=== PATIENT | male | born 1995 | race Hispanic/Latino ===

== ENCOUNTER 2025-03-10 16:30 | Emergency (ER) | payer SELFPAY ==
[~2025-03-10] VITALS: Ht 175.3 cm; Wt 108.9 kg
[2025-03-10 16:32] VITALS: BP 149/93; PULSE 98; RESP 16; TEMP 100.7
--- NOTE | 2025-03-10 16:46 | ERN ---
ED Note History of Present Illness Stated Complaint: LEFT EAR PAIN Chief Complaint: Earache Time Seen by MD: 16:32 Dictation: PATIENT IS A 29-YEAR-OLD MALE COMING IN TODAY WITH COMPLAINTS OF LEFT EAR PAIN HE HAS HAD FOR 3-4 DAYS. STATES HE SAW HIS PRIMARY CARE, DR. HALEY YESTERDAY AT [facility] AND WAS PRESCRIBED OFLOXACIN DROPS WELL BACTRIM DS TABLETS. HE HAS ONLY HAD ONE DOSE OF EACH AND THEN CAME TO THE EMERGENCY ROOM BECAUSE HE THOUGHT THAT THEY WERE NOT WORKING. NO FEVER NO CHILLS STATES HE DOES HAVE MUFFLED HEARING TO THE LEFT EAR. NO MASTOID TENDERNESS I EXPLAINED TO HIM HE NEEDED TO BE USING COTTON BALLS WHEN HE PLACES EAR DROPS TO RETAINED IN CANAL. IN ADDITION HAS BEEN ENTIRELY TOO SHORT OF TIME TO ADEQUATELY TREAT THE INFECTION. Allergies: Coded Allergies: azithromycin (Unverified Allergy, Unknown, 03/10/25) diphenhydramine (Unverified Allergy, Unknown, 03/10/25) Past Medical History Past Medical History: Other Additional Past Medical Hx: CHRONIC LT EAR INFECTIONS, NOSE BLEEDS Surgical History: Other Surgical History Other: PILONIDAL CYST RN Note Reviewed/Agreed w/PFSH: Yes Review of System Dictation CONSTITUTIONAL: NEGATIVE EXCEPT FOR HPI HEAD/FACE: NEGATIVE EXCEPT FOR HPI EENT: NEGATIVE EXCEPT FOR HPI LEFT EAR PAIN WITH MUFFLED HEARING RESPIRATORY: NEGATIVE EXCEPT FOR HPI GASTROINTESTINAL/ABDOMINAL: NEGATIVE EXCEPT FOR HPI GENITOURINARY: NEGATIVE EXCEPT FOR HPI MUSCULOSKELETAL: NEGATIVE EXCEPT FOR HPI INTEGUMENTARY: NEGATIVE EXCEPT FOR HPI NEUROLOGICAL/PSYCH: NEGATIVE EXCEPT FOR HPI HEMATOLOGIC/LYMPHATIC: NEGATIVE EXCEPT FOR HPI ALL SYSTEMS NEGATIVE, EXCEPT NOTED ABOVE. 13 POINT REVIEW OF SYSTEMS ASSESSED AND ALL NEGATIVE EXCEPT FOR ABOVE. Initial Vital Sign VS Vital Signs Date Time Temp Pulse Resp B/P (MAP) Pulse Ox O2 Delivery O2 Flow Rate FiO2 03/10/25 16:32 100.8 98 16 149/93 96 Room Air 0 Physical Exam Dictation VITAL SIGNS REVIEWED GENERAL APPEARANCE: ALERT, ORIENTED X 3, MODERATE ACUTE DISTRESS, WELL DEVELOPED, NOURISHED. OBESE HEAD AND FACE: NON-TRAUMATIC. EYES: PERRL, PINK CONJUNCTIVAS, EYELID NO TRAUMA, ANTERIOR CHAMBER WITH ARCUS SENILIS. EARS: PINNAS INTACT AND NO SIGNS OF TRAUMA LEFT OTIC CANAL WITH ERYTHEMA TENDERNESS AND SWELLING. UNABLE TO VISUALIZE TM ON THE LEFT. NEGATIVE MASTOID TENDERNESS BILATERALLY NOSE: NO DISCHARGE, NO BLEEDING. OROPHARYNX: MOUTH NORMAL, TONGUE PINK, PHARYNX CLEAR,NO ERYTHEMA, TONSILS NO EXUDATES, NO ABSCESSES NOTED, MUCOUS MEMBRANE MOIST NECK: SUPPLE, NON-TENDER, NO THYROMEGALY, NO MASSES, NO JVD, NO BRUITS BREAST:DEFERRED CHEST:NO TENDERNESS, NO CREPITUS, NO PARADOXICAL MOVEMENT, NO RETRACTIONS LUNGS:CLEAR, WELL-VENTILATED, SYMMETRIC, NO RALES, NO WHEEZING, NO RHONCHI, NO STRIDOR, GOOD BREATH SOUNDS BILATERALLY HEART: REGULAR RATE, REGULAR RHYTHM, NO MURMUR, NO GALLOPS VASCULAR: NO PERIPHERAL EDEMA, ABDOMEN: SOFT, POSITIVE BOWEL SOUNDS, NONDISTENDED, NO GUARDING, NONTENDER, NO REBOUND, NO MASSES NO HEPATOMEGALY, NO SPLENOMEGALY, NO PEDROZA'S SIGN, NO HERNIAS. RECTAL: DEFERRED GENITAL: DEFERRED NEUROLOGICAL: NORMAL SPEECH, MOTOR FUNCTION INTACT, SENSORY FUNCTION INTACT MUSCULOSKELETAL: NECK NONTENDER, FULL RANGE OF MOTION, BACK NONTENDER, FULL RANGE OF MOTION, EXTREMITIES: NONTENDER, FULL RANGE OF MOTION SKIN: COLOR PINK, DRY, NO TURGOR, NO RASH, NO LACERATIONS, NO ABRASIONS, NO CONTUSIONS. LYMPHATIC: DEFERRED Results (Laboratory/Radiology) Labs Reviewed?: Yes ED Course ED Course Orders Procedure Category Date Status Time Ceftriaxone 1g Vial PHA 03/10/25 Complete (Rocephine 1g Inj) 17:00 Hydrocodone/Apap PHA 03/10/25 Complete 5/325 ([place] 5/325mg) 17:00 Current Medications Medications (Trade) Dose Ordered Sig/Hi Route PRN Reason Start Time Stop Time Status Last Admin Dose Admin Acetaminophen/ Hydrocodone Bitart (NORco 5/325MG) 1 tab ONCE ONCE PO 03/10/25 17:00 03/10/25 17:01 DC 03/10/25 16:57 Ceftriaxone Sodium (ROCEphine 1G INJ) 1 gm ONCE ONCE IM 03/10/25 17:00 03/10/25 17:01 DC 03/10/25 16:57 Vital Signs Date Time Temp Pulse Resp B/P (MAP) Pulse Ox O2 Delivery O2 Flow Rate FiO2 03/10/25 16:32 100.8 98 16 149/93 96 Room Air 0 1645/WE WILL TREAT PATIENT EMPIRICALLY FOR ACUTE OTITIS EXTERNA. HE WILL BE GIVEN ROCEPHIN AND ADDITIONAL PAIN MANAGEMENT TOLD TO CONTINUE THE MEDICATIONS FROM HIS DOCTOR PRESCRIBED YESTERDAY AND USE COTTON BALLS WHEN HE PLACES EAR DROPS. ALSO HAS MOTRIN 800 THAT WAS PRESCRIBED YESTERDAY. Medical Decision Making MDM MEDICAL DECISION-MAKING BASED ON EMPIRIC TREATMENT FOR ACUTE OTITIS EXTERNA P.R.N. ANALGESIA WAS GIVEN FOR PAIN. PATIENT IS STRONGLY ADVISED TO CONTINUE OFLOXACIN DROPS, BACTRIM DS TABLETS, IBUPROFEN 800. HE WAS TOLD TO USE THE COTTON BALLS WITH THE ADMINISTRATION OF THE OFLOXACIN DROPS. DX & DISP Disposition: Discharge Departure Impression: Primary Impression: Acute diffuse otitis externa of left ear Condition: Stable Additional Instructions: FOLLOW-UP WITH PRIMARY CARE PROVIDER IN 1 TO 2 DAYS. TAKE MEDICATIONS DIRECTED HERE IN THE EMERGENCY ROOM. OKAY TO CONTINUE HOME MEDICATIONS UNLESS OTHERWISE DISCUSSED DURING YOUR VISIT IN THE EMERGENCY ROOM TODAY. RETURN TO YOUR NEAREST EMERGENCY ROOM IF SYMPTOMS WORSEN OR IF THERE IS NO IMPROVEMENT. CALL 911 IF YOU NEED IMMEDIATE ASSISTANCE. TAKE TYLENOL OR MOTRIN [id number] NEEDED AND IF NO CONTRAINDICATIONS ARE PRESENT. INCREASE ORAL HYDRATION. A WOUND CULTURE OR URINE CULTURE WAS ORDERED HERE IN THE EMERGENCY ROOM DEPARTMENT PLEASE FOLLOW-UP WITH PRIMARY CARE PROVIDER AND ADVISE THEM TO GET REPEAT PORTS FROM OUR FACILITY. IF YOU HAD ANY JANE WRAP/SPLINTS THAT WERE APPLIED HERE, PLEASE DO NOT REMOVE THEM UNTIL YOU SEE YOUR PRIMARY CARE OR SPECIALTY. CONTINUE OFLOXACIN DROPS FROM YOUR DOCTOR, USE COTTON BALLS WITH ADMINISTRATION. CONTINUE BACTRIM DS TABLETS AND IBUPROFEN NEEDED FOR FEVER PAIN. FOLLOW BACK UP WITH YOUR DOCTOR IN 2-3 DAYS IF NOT IMPROVED SO HE CAN REFER YOU TO AN EYE HOME HEALTH CLINICAL SUPERVISOR Referrals: ABHIJEET HALEY (PCP) Time of Disposition: 16:44 I have reviewed the case, and I agree with, Diagnosis and Plan [facility] Mar 10, 2025 16:46 LUCAS TUTTLE DO Mar 10, 2025 17:47
[2025-03-10] MEDS: HYDROcodone/APAP 5/325 1 TAB TABLET PO ONE (16:57)
[2025-03-10] MEDS: cefTRIAXone 1G VIAL IM ONE (16:57)
== END 2025-03-10 17:09 | disposition home or self-care (01) ==
LOC: EDH 16:30
DX: H60.312 Diffuse otitis externa, left ear (principal); Z88.1 Allergy status to other antibiotic agents
CPT/HCPCS: 99283; 96372; J0696